=== PATIENT | female | born 1960 | race African-American/Black ===

== ENCOUNTER 2021-03-26 23:11 | Emergency (ER) | payer OTHER, MEDICAID ==
[~2021-03-26] VITALS: Ht 167.6 cm; Wt 87.0 kg
[2021-03-27 00:27] LABS: BASOPHILS % 0.4 % (0.0-2.0); EOSINOPHILS % 0.3 % (0.0-5.0); HEMATOCRIT. 36.3 % (36.0-48.0); HEMOGLOBIN. 12.3 g/dL (12.0-16.0); LYMPHOCYTES % 24.7 % (20.0-50.0); MEAN CORPUSCULAR HEMOGLOBIN 36.1 pg (28.0-32.0); MEAN CORPUSCULAR VOLUME 106.9 fL (81.0-99.0); MEAN PLATELET VOLUME 11.4 fl (7.4-10.4); MONOCYTES % 3.7 % (2.0-8.0); NEUTROPHILS % 70.9 % (40.0-76.0); PLATELET 80 x1000/uL (130-400); RED CELL DISTRIBUTION WIDTH 15.1 % (11.6-14.6)
[2021-03-27 00:37] LABS: ETHANOL BLOOD < 10 mg/dL
[2021-03-27 01:29] LABS: BG BASE EXCESS 3.7 mmol/L (-2.0-2.0); BG CARBOXYHEMOGLOBIN 2.2 % (0.5-1.5); BG DEOXYHEMOGLOBIN 31.9 % (0.0-5.0); BG FRACTION INSPIRED OXYGEN 21; BG HCO3 ACT 30.4 mmol/L (22.0-26.0); BG METHEMOGLOBIN 0.1 % (0.0-1.5); BG OXYGEN SATURATION 67.3 % (92.0-98.5); BG OXYHEMOGLOBIN 65.8 % (94.0-97.0); BG PCO2 55.9 mmHg (35.0-45.0); BG PH 7.354 (7.350-7.450); BG SAMPLE SITE RIGHT RADIAL; BG VENT MODE ROOM AIR
[2021-03-27 01:33] LABS: CHLORIDE 110 mEq/L (98-107)
[2021-03-27 01:46] LABS: CHLORIDE 109 mEq/L (98-107)
[2021-03-27 04:00] VITALS: BP 145/72
== END 2021-03-27 04:59 | disposition short-term general hospital (02) ==
LOC: ER 23:14
DX: G93.40 Encephalopathy, unspecified (principal); I10 Essential (primary) hypertension; E78.00 Pure hypercholesterolemia, unspecified; Z88.0 Allergy status to penicillin
CPT/HCPCS: 36415; 36600; 71045; 80048; 80053; 80320; 82375; 82805; 82962; 85025; 93005; 99285; G0480

== ENCOUNTER 2021-10-17 21:29 | Emergency (ER) | payer OTHER, MEDICARE ==
[~2021-10-17] VITALS: Ht 185.4 cm; Wt 100.0 kg
[2021-10-17 21:39] VITALS: BP 125/70
[2021-10-17 23:18] LABS: BASOPHILS % 0.8 % (0.0-2.0); EOSINOPHILS % 1.7 % (0.0-5.0); HEMATOCRIT. 35.8 % (36.0-48.0); HEMOGLOBIN. 11.8 g/dL (12.0-16.0); LYMPHOCYTES % 47.5 % (20.0-50.0); MEAN CORPUSCULAR HEMOGLOBIN 31.7 pg (28.0-32.0); MEAN CORPUSCULAR VOLUME 95.9 fL (81.0-99.0); MEAN PLATELET VOLUME 7.8 fl (7.4-10.4); MONOCYTES % 7.2 % (2.0-8.0); NEUTROPHILS % 42.8 % (40.0-76.0); PLATELET 287 x1000/uL (130-400); RED BLOOD CELL COUNT 3.73 mill/uL (4.2-5.4); RED CELL DISTRIBUTION WIDTH 16.4 % (11.6-14.6)
[2021-10-17 23:20] LABS: CHLORIDE 108 mEq/L (98-107)
== END 2021-10-18 02:05 | disposition home or self-care (01) ==
LOC: ER 21:29
DX: I10 Essential (primary) hypertension (principal); E78.00 Pure hypercholesterolemia, unspecified; Z88.0 Allergy status to penicillin
CPT/HCPCS: 36415; 71045; 80053; 84484; 85025; 93005; 99285

== ENCOUNTER 2021-11-07 04:52 | Emergency (ER) | payer OTHER, MEDICAID ==
[~2021-11-07] VITALS: Ht 172.7 cm; Wt 100.0 kg
[2021-11-07] MEDS ORDERED: ACETAMINOPHEN WITH CODEINE 300/30MG TABLET PO ONE (05:45)
[2021-11-07] MEDS ORDERED: ALBU90AE INH (06:04)
[2021-11-07] MEDS ORDERED: ACET650T37 MT (06:04)
[2021-11-07 06:15] VITALS: BP 136/89
== END 2021-11-07 06:17 | disposition home or self-care (01) ==
LOC: ER 04:55
DX: Z76.0 Encounter for issue of repeat prescription (principal); M79.604 Pain in right leg; M79.605 Pain in left leg; J45.909 Unspecified asthma, uncomplicated; E78.00 Pure hypercholesterolemia, unspecified; I10 Essential (primary) hypertension; Z88.0 Allergy status to penicillin
CPT/HCPCS: 99283